=== PATIENT | male | born 1950 | race Caucasian/White ===

== ENCOUNTER 2023-10-15 20:37 | Inpatient (IN) | payer MEDICARE, OTHER ==
[~2023-10-15] VITALS: Ht 172.7 cm; Wt 83.0 kg
[2023-10-15] MEDS ORDERED: ESCI5TAB PO (20:55)
[2023-10-15] MEDS ORDERED: SERT25TA PO (20:58)
[2023-10-16] MEDS ORDERED: BLOOD SUGAR DIAGNOSTIC 1 EACH STRIP VI ONE (02:30)
[2023-10-16] MEDS ORDERED: MAG HYDROX/AL HYDROX/SIMETH 30 ML LIQUID UDC PO PRN (02:30)
[2023-10-16] MEDS ORDERED: MAGNESIUM HYDROXIDE 30 ML LIQUID UDC PO PRN (02:30)
[2023-10-16 03:14] VITALS: BP 121/62; TEMP 98.1; O2SAT 97
[2023-10-16] MEDS ORDERED: MIRT-119 PO (05:15)
[2023-10-16 08:42] VITALS: BP 128/71; TEMP 98; O2SAT 98
[2023-10-16 15:25] VITALS: BP 146/70; TEMP 98; O2SAT 98
[2023-10-16] MEDS: risperiDONE-M 0.5 MG TAB.RAPDIS PO SCH (18:45)
[2023-10-16 19:45] VITALS: BP 125/65; TEMP 98.1; O2SAT 98
[2023-10-16] MEDS: DIVALPROEX SPRINKLE 125 MG CAP.SPRINK PO SCH (20:23)
[2023-10-16] MEDS: TEMAZEPAM 7.5 MG CAPSULE PO PRN (23:53)
[2023-10-17] MEDS: CLONAZEPAM 0.5 MG TABLET PO PRN (02:49)
[2023-10-17 07:52] VITALS: BP 133/76; TEMP 98; O2SAT 100
[2023-10-17 08:13] LABS: BASOPHILS % (AUTO) 0.8 % (0.0-2.0); EOSINOPHILS # (AUTO) 0.3 K/uL (0.0-0.7); EOSINOPHILS % (AUTO) 4.4 % (0.0-7.0); HEMATOCRIT 36.1 % (36.7-47.1); LYMPHOCYTES # (AUTO) 1.3 K/uL (0.8-4.8); MEAN CORPUSCULAR HEMOGLOBIN 31.6 uug (23.8-33.4); MEAN CORPUSCULAR HGB CONC 33 g/dL (32.5-36.3); MEAN CORPUSCULAR VOLUME 94.9 fL (73.0-96.2); MONOCYTES # (AUTO) 1.1 K/uL (0.1-1.30); NEUTROPHILS # (AUTO) 3.5 K/uL (1.8-8.9); NEUTROPHILS % (AUTO) 56.8 % (38.5-71.5); PLATELET COUNT (AUTO) 396 K/uL (152-348); RED BLOOD CELL COUNT(AUTO) 3.81 MIL/uL (4.06-5.63); RED CELL DISTRIBUTION WIDTH 16.1 % (12.1-16.2); WHITE BLOOD COUNT (AUTO) 6.1 K/uL (3.6-10.2)
[2023-10-17 08:14] LABS: DIFFERENTIAL COMMENT 1
[2023-10-17] MEDS: risperiDONE-M 0.5 MG TAB.RAPDIS PO SCH ×2 (08:29→17:06)
[2023-10-17] MEDS: ESCITALOPRAM OXALATE 10 MG TABLET PO SCH (08:29)
[2023-10-17] MEDS: DIVALPROEX SPRINKLE 125 MG CAP.SPRINK PO SCH ×2 (08:29→20:50)
[2023-10-17 08:32] LABS: ALBUMIN 3.2 g/dL (3.4-5.0); BILIRUBIN,TOTAL 0.5 mg/dL (0.2-1.0); CALCIUM 9.2 mg/dL (8.5-10.1); CREATININE 0.8 mg/dL (0.6-1.3); TOTAL PROTEIN, SERUM 7.3 g/dL (6.4-8.2)
[2023-10-17 15:11] VITALS: BP 134/75; TEMP 98; O2SAT 98
[2023-10-17 20:00] VITALS: BP 151/64; TEMP 98; O2SAT 95
[2023-10-17] MEDS: ACETAMINOPHEN 325 MG TABLET PO PRN (20:50)
[2023-10-18] MEDS: CLONAZEPAM 0.5 MG TABLET PO PRN (03:25)
[2023-10-18 07:30] VITALS: BP 156/66; TEMP 98; O2SAT 98
[2023-10-18 08:26] LABS: CALCIUM 9.1 mg/dL (8.5-10.1); CARBON DIOXIDE 29 mmol/L (21-32); CHLORIDE 98 mmol/L (98-107); CREATININE 0.8 mg/dL (0.6-1.3); GLUCOSE 116 mg/dL (74-106); MAGNESIUM 1.9 mg/dL (1.8-2.4); PHOSPHOROUS 3.3 mg/dL (2.5-4.9); SODIUM SERUM 135 mmol/L (136-145); UREA NITROGEN, BLOOD 8 mg/dL (7-18); URIC ACID 6.1 mg/dL (3.5-7.2)
[2023-10-18] MEDS: ESCITALOPRAM OXALATE 10 MG TABLET PO SCH (08:34)
[2023-10-18] MEDS: DIVALPROEX SPRINKLE 125 MG CAP.SPRINK PO SCH ×2 (08:34→21:23)
[2023-10-18] MEDS: risperiDONE-M 0.5 MG TAB.RAPDIS PO SCH ×2 (08:35→21:24)
[2023-10-18 08:38] LABS: THYROID STIMULATING HORMONE 3.172 mIU/mL (0.358-3.740)
[2023-10-18 15:04] VITALS: BP 146/61; TEMP 98; O2SAT 99
[2023-10-18] MEDS: ACETAMINOPHEN 325 MG TABLET PO PRN (15:13)
[2023-10-18 20:00] VITALS: BP 145/86; TEMP 98.8; O2SAT 95
[2023-10-19] MEDS: ACETAMINOPHEN 325 MG TABLET PO PRN ×3 (00:52→20:08)
[2023-10-19] MEDS: TEMAZEPAM 7.5 MG CAPSULE PO PRN ×2 (01:38→23:32)
[2023-10-19 08:06] VITALS: BP 115/71; TEMP 98; O2SAT 97
[2023-10-19] MEDS: DIVALPROEX SPRINKLE 125 MG CAP.SPRINK PO SCH ×2 (08:43→20:08)
[2023-10-19] MEDS: risperiDONE-M 0.5 MG TAB.RAPDIS PO SCH ×2 (08:43→20:08)
[2023-10-19] MEDS: ESCITALOPRAM OXALATE 10 MG TABLET PO SCH (08:44)
[2023-10-19 15:18] VITALS: BP 136/71; TEMP 97.8; O2SAT 99
[2023-10-19 20:00] VITALS: BP 128/68; TEMP 98.9; O2SAT 98
[2023-10-20] MEDS: ACETAMINOPHEN 325 MG TABLET PO PRN ×3 (02:19→18:36)
[2023-10-20 08:01] VITALS: BP 146/74; TEMP 97.5; O2SAT 96
[2023-10-20] MEDS: ESCITALOPRAM OXALATE 10 MG TABLET PO SCH (08:32)
[2023-10-20] MEDS: DIVALPROEX SPRINKLE 125 MG CAP.SPRINK PO SCH ×2 (08:32→20:37)
[2023-10-20] MEDS: risperiDONE-M 0.5 MG TAB.RAPDIS PO SCH ×2 (08:33→20:37)
[2023-10-20] MEDS: DOCUSATE SODIUM 250 MG CAPSULE PO SCH (10:04)
[2023-10-20] MEDS: GABAPENTIN 100 MG CAPSULE PO SCH ×2 (12:42→16:47)
[2023-10-20 16:02] VITALS: BP 101/52; TEMP 98; O2SAT 98
[2023-10-20 20:14] VITALS: BP 119/57; TEMP 98; O2SAT 96
[2023-10-20] MEDS: TEMAZEPAM 7.5 MG CAPSULE PO PRN (23:53)
[2023-10-21] MEDS: CLONAZEPAM 0.5 MG TABLET PO PRN (02:19)
[2023-10-21 07:46] VITALS: BP 118/45; TEMP 98.2; O2SAT 94
[2023-10-21] MEDS: GABAPENTIN 100 MG CAPSULE PO SCH ×3 (08:26→16:51)
[2023-10-21] MEDS: risperiDONE-M 0.5 MG TAB.RAPDIS PO SCH ×2 (08:26→20:33)
[2023-10-21] MEDS: DIVALPROEX SPRINKLE 125 MG CAP.SPRINK PO SCH ×2 (08:26→20:33)
[2023-10-21] MEDS: DOCUSATE SODIUM 250 MG CAPSULE PO SCH (08:26)
[2023-10-21] MEDS: ESCITALOPRAM OXALATE 10 MG TABLET PO SCH (08:27)
[2023-10-21] MEDS: ACETAMINOPHEN 325 MG TABLET PO PRN ×2 (12:29→20:33)
[2023-10-21 14:36] VITALS: BP 124/75; TEMP 98; O2SAT 96
[2023-10-21 15:19] VITALS: BP 124/75; TEMP 98; O2SAT 96
[2023-10-21 19:50] VITALS: BP 147/78; TEMP 98.2; O2SAT 97
[2023-10-22] MEDS: TEMAZEPAM 7.5 MG CAPSULE PO PRN ×2 (00:20→23:47)
[2023-10-22] MEDS: CLONAZEPAM 0.5 MG TABLET PO PRN (01:55)
[2023-10-22 08:00] VITALS: BP 114/98; TEMP 98.8; O2SAT 96
[2023-10-22] MEDS: risperiDONE-M 0.5 MG TAB.RAPDIS PO SCH ×2 (08:33→20:11)
[2023-10-22] MEDS: DOCUSATE SODIUM 250 MG CAPSULE PO SCH (08:33)
[2023-10-22] MEDS: GABAPENTIN 100 MG CAPSULE PO SCH ×3 (08:33→16:48)
[2023-10-22] MEDS: DIVALPROEX SPRINKLE 125 MG CAP.SPRINK PO SCH ×2 (08:33→20:11)
[2023-10-22] MEDS: ESCITALOPRAM OXALATE 10 MG TABLET PO SCH (08:34)
[2023-10-22] MEDS: ACETAMINOPHEN 325 MG TABLET PO PRN ×2 (12:24→20:10)
[2023-10-22 16:00] VITALS: BP 111/63; TEMP 98.2; O2SAT 97
[2023-10-22 19:43] VITALS: BP 132/68; TEMP 98.1; O2SAT 96
[2023-10-23 08:14] VITALS: BP 116/48; TEMP 97.6; O2SAT 98
[2023-10-23] MEDS: ESCITALOPRAM OXALATE 10 MG TABLET PO SCH (08:22)
[2023-10-23] MEDS: DIVALPROEX SPRINKLE 125 MG CAP.SPRINK PO SCH ×2 (08:22→20:07)
[2023-10-23] MEDS: GABAPENTIN 100 MG CAPSULE PO SCH ×3 (08:23→16:47)
[2023-10-23] MEDS: risperiDONE-M 0.5 MG TAB.RAPDIS PO SCH ×2 (08:23→20:07)
[2023-10-23] MEDS: DOCUSATE SODIUM 250 MG CAPSULE PO SCH (08:23)
[2023-10-23] MEDS: ACETAMINOPHEN 325 MG TABLET PO PRN (09:33)
[2023-10-23 15:37] VITALS: BP 116/65; TEMP 97.8; O2SAT 99
[2023-10-23 19:56] VITALS: BP 142/64; TEMP 98; O2SAT 99
[2023-10-24] MEDS: ACETAMINOPHEN 325 MG TABLET PO PRN ×2 (03:31→12:10)
[2023-10-24 07:45] VITALS: BP 142/64; TEMP 98.2; O2SAT 99
[2023-10-24] MEDS: risperiDONE-M 0.5 MG TAB.RAPDIS PO SCH ×2 (08:23→20:33)
[2023-10-24] MEDS: GABAPENTIN 100 MG CAPSULE PO SCH ×3 (08:23→17:04)
[2023-10-24] MEDS: DIVALPROEX SPRINKLE 125 MG CAP.SPRINK PO SCH ×2 (08:24→20:22)
[2023-10-24] MEDS: ESCITALOPRAM OXALATE 10 MG TABLET PO SCH (08:24)
[2023-10-24] MEDS: DOCUSATE SODIUM 250 MG CAPSULE PO SCH (08:24)
[2023-10-24 16:00] VITALS: BP 137/68; TEMP 97.8; O2SAT 98
[2023-10-24 20:00] VITALS: BP 139/69; TEMP 97.5; O2SAT 98
[2023-10-25] MEDS: TEMAZEPAM 7.5 MG CAPSULE PO PRN (00:35)
[2023-10-25] MEDS: risperiDONE-M 0.5 MG TAB.RAPDIS PO SCH ×2 (08:41→20:35)
[2023-10-25] MEDS: GABAPENTIN 100 MG CAPSULE PO SCH ×3 (08:41→16:24)
[2023-10-25] MEDS: DIVALPROEX SPRINKLE 125 MG CAP.SPRINK PO SCH ×2 (08:41→20:35)
[2023-10-25] MEDS: DOCUSATE SODIUM 250 MG CAPSULE PO SCH (08:41)
[2023-10-25] MEDS: ESCITALOPRAM OXALATE 10 MG TABLET PO SCH (08:41)
[2023-10-25 16:30] VITALS: BP 153/71; TEMP 98.2; O2SAT 99
[2023-10-25 20:15] VITALS: BP 145/88; TEMP 97.8; O2SAT 99
[2023-10-26] MEDS: TEMAZEPAM 7.5 MG CAPSULE PO PRN (01:42)
[2023-10-26] MEDS: GABAPENTIN 100 MG CAPSULE PO SCH ×2 (08:16→13:00)
[2023-10-26] MEDS: ESCITALOPRAM OXALATE 10 MG TABLET PO SCH (08:16)
[2023-10-26] MEDS: DIVALPROEX SPRINKLE 125 MG CAP.SPRINK PO SCH (08:16)
[2023-10-26] MEDS: risperiDONE-M 0.5 MG TAB.RAPDIS PO SCH (08:16)
[2023-10-26] MEDS: DOCUSATE SODIUM 250 MG CAPSULE PO SCH (08:16)
[2023-10-26 09:30] VITALS: TEMP 97.9; O2SAT 99
[2023-10-26] MEDS: ACETAMINOPHEN 325 MG TABLET PO PRN (10:34)
== END 2023-10-26 12:30 | DRG 885 ==
LOC: ER 20:37 → GPS 21:00
PROVIDERS: ADMIT Psychiatry & Neurology Psychiatry; ATTEND Internal Medicine
DX: F29 Unspecified psychosis not due to a substance or known physiological condition (principal); E44.1 Mild protein-calorie malnutrition; E87.1 Hypo-osmolality and hyponatremia; F31.9 Bipolar disorder, unspecified; R60.0 Localized edema; Z68.27 Body mass index [BMI] 27.0-27.9, adult; M62.81 Muscle weakness (generalized); G31.84 Mild cognitive impairment of uncertain or unknown etiology; F41.9 Anxiety disorder, unspecified; Z91.81 History of falling; Z79.899 Other long term (current) drug therapy
CPT/HCPCS: 36415; 83735; 84100; 84443; 84550; 85025